=== PATIENT | male | born 1935 | race Caucasian/White ===

== ENCOUNTER 2016-12-23 12:01 | Inpatient (IN) | payer MEDICARE ==
[2016-12-23] MEDS ORDERED: ASPIRIN 300 MG SUPP.RECT RC ONE ×2 (12:09→12:13)
[2016-12-23] MEDS ORDERED: TENECTEPLASE 50 MG KIT IV ONE (12:13)
[2016-12-23] MEDS ORDERED: TENECTEPLASE IV ONE (12:13)
[2016-12-23] MEDS ORDERED: TENECTEPLASE 50 MG KIT IV STA (12:13)
[2016-12-23 12:14] LABS: Hematocrit 41.6 % (42.0-52.0); Hemoglobin 13.2 gm/dL (13.5-18.0); Mean Corpuscular Hemoglobin 30.8 pg (27-31); Mean Corpuscular Hgb Conc 31.7 g/dl (32-36); Mean Platelet Volume 11.7 fl (6.0-9.5); Neutrophil # 5.7 K/mm3 (1.3-6.0); Neutrophil % 38.8 % (42-75.0); Platelet Count 247 K/mm3 (150-450); Red Blood Count 4.29 M/mm3 (4.7-6.0); Red Cell Distribution Width 14.5 % (11.5-14.0); White Blood Count 14.6 K/mm3 (4.0-10.5)
[2016-12-23 12:15] LABS: Total Cells Counted 100
[2016-12-23] MEDS ORDERED: HEPARIN SODIUM,PORCINE 5,000 UNITS/ML VIAL IV ONE (12:15)
[2016-12-23] MEDS ORDERED: HEPARIN SODIUM,PORCINE 10,000 UNITS/ML VIAL ONE (12:21)
[2016-12-23 12:30] LABS: Atypical (Reactive) Lymph 11 % (0-2); Eosinophil 2 % (0-3); Immature Granulocyte 1 (0-1); Lymphocyte 34 % (20-51); Monocyte 7 % (0-9); Neutrophil 45 % (42-75); Neutrophil # 6.6 K/mm3 (1.3-6.0)
[2016-12-23 12:31] LABS: Anisocytosis 2+; Platelet Estimate Normal (NORMAL); Prothrombin Time (Patient) 11.2 Seconds (9.4-11.4)
[2016-12-23 12:32] LABS: INR 1.08 INR (0.90-1.10); Partial Thrombolplastin Time 20.1 Seconds (24-32)
[2016-12-23 12:33] LABS: Albumin * 2.9 gm/dl (3.4-5.0); BUN/Creatinine Ratio 18.1 (9.0-21.6); Bilirubin, Total 0.3 mg/dL (0.0-1.1); Ca. Corrected For Albumin 9.6 mg/dL (8.4-10.2); Carbon Dioxide 24.8 mmol/L (24-32.6); Potassium 2.8 mmol/L (3.4-4.6); Total Protein 7.2 gm/dL (6.2-8.2)
[2016-12-23 12:36] LABS: Troponin I 0.113 ng/ml (0.00-0.10)
--- NOTE | 2016-12-23 12:42 | OR ---
Anesthesia Procedure Note - Anesthesia Procedure Note Date of Service: 12/23/16 Narrative: Vital Signs - Last Taken Temp 36.6 C 12/23/16 12:06 Pulse 54 L 12/23/16 12:25 Resp 32 H 12/23/16 12:06 BP 90/54 12/23/16 12:25 Pulse Ox O2 Oxygen Delivery Method Ambu-Bag 12/23/16 12:37 Endotracheal intubation: I was called to the ER room 24 patient currently being ventilated with a supraglottic ventilation device. The patient is status post code who is now in an organized cardiac rhythm and has some spontaneous respiration but is non-responsive. The patient was preoxygenated with 100% O2 his dentures removed and secured with ER personnel, he was orally suctioned error was removed from the breathing device and removed the laryngoscopy performed. The anatomy was easy to identify but for some reason the light was particularly dull between light condition and his reflex cough/girdle against the laryngeal scope being visualization was made quite difficult. The patient was then ventilated with 100% oxygen by mask after additional oral suctioning was performed, rocuronium 3 mg followed by succinylcholine 5 mg and an additional 75 mg succinylcholine was given for rapid sequence type intubation. This time he remains on S was easily visualized with good light using a #3 glide scope. CO2 returned with a chemical monitor bilateral breath sounds were coarse but equal and no sounds in the epigastric area. Oxygen saturation remained good throughout the procedure, the #8 endotracheal tube was then secured at 22 cm with a commercial to pulling device.
[2016-12-23 12:43] LABS: Urine Bilirubin Negative (NEGATIVE); Urine Blood Negative /ul (NEGATIVE); Urine Ketone Negative (NEGATIVE); Urine Nitrite Negative (NEGATIVE); Urine Protein 15 mg/dL (NEGATIVE); Urine Urobilinogen Normal (NORMAL)
[2016-12-23 12:51] LABS: Urine Appearance Clear; Urine Bacteria 1+; Urine Color Yellow; Urine RBC None Seen /hpf (0-5); Urine WBC None Seen /hpf (0-5)
[2016-12-23 12:52] LABS: Urine Hyaline Cast 0-5 /LPF
[2016-12-23] MEDS ORDERED: POTASSIUM CHLORIDE 20 MEQ in NORMAL SALINE 1,000 ML IV PRN ×7 (12:53→13:02)
--- NOTE | 2016-12-23 12:55 | ERNOTE ---
CARDIAC HPI - Narrative Date of Service: 12/23/16 - General Stated Complaint:: Cardiac arrest Time Seen by Provider: 12/23/16 12:06 Source: EMS Exam Limitations: clinical condition - History of Present Illness Initial Comments: Was seated at home. His observed him to make a sound, then become unconscious. She called 911. First responders with there within 1-2 minutes. He had no pulse and wasn't breathing. They provided CPR, and he received overall 3 shocks. Rhythm reported was V fib. EMS arrived, started an interosseous and peripheral IV. He received a fourth shock and one dose of epinephrine, 1 mg IV. He then obtained a pulse and a blood pressure of about 90 systolic. He did not regain consciousness in the EMS vehicle. EMS also inserted a Herb airway. Upon arrival in the ER, EKG showed signs of inferior infarct, acute. He has a history of previous CABG. Ander Delcid, anesthesia, replaced the Herb airway with an endotracheal tube which was in good position. Family was not certain about which direction they wanted to carry the treatment forward. His was present shortly after arrival by EMS in the ER. They wished to discuss all of this with each other and with their station worker. The patient's pupils were mid position and nonresponsive upon arrival in the ER. He was given an ASA rectal suppository on arrival, and TNKase followed by a heparin bolus, but no heparin drip. He began to wake up, requiring institution of a propofol drip. Finally, after additional discussion, family wished to pursue comfort care. We stopped the propofol, and he began to wake up again. We have just removed the endotracheal tube, and will provide comfort care hereafter. Initial CXR showed fluffy infiltrates in the right lung, and endotracheal and NG tubes in good position. He had bloody material coming both up from the endotracheal tube and around it, but that abated. He was given one dose of IV antibiotics, presuming possible aspiration pneumonia. I spoke by telephone with Dr. Styles, who agreed to accept the patient as a comfort care admission. Timing/Duration: other Severity: severe Aspirin Treatment Today: provided by ED - Immun/Allergies/Home Medicatons Allergies/Adverse Reactions: Allergies Allergy/AdvReac Type Severity Reaction Status Date / Time adhesive Allergy Verified 12/23/16 12:30 amitriptyline Allergy Verified 12/23/16 12:30 gabapentin Allergy Verified 12/23/16 12:30 hydrocodone Allergy Verified 12/23/16 12:30 zolpidem tartrate Allergy Verified 12/23/16 12:30 [From Ambien] Home Medications: Ambulatory Orders Medication Instructions Recorded Allopurinol [Zyloprim] 200 mg PO DAILY 02/06/13 Aspirin [Aspirin Enteric Coated] 325 mg PO DAILY 02/06/13 Ferrous Sulfate 325 mg PO TID 02/06/13 Insulin Aspart [Novolog] 40 unit SQ TID 02/06/13 Insulin Glargine,Hum.rec.anlog 65 unit SQ BID 02/06/13 [Lantus Solostar] Isosorbide Dinitrate 30 mg PO TID 02/06/13 Multivitamin [Multivitamins] 1 each PO DAILY 02/06/13 Nitroglycerin 0.4 mg SL DAILY PRN 02/06/13 [place]-3 Fatty Acids/Fish Oil [Fish 2 each PO TID 02/06/13 Oil 1,000 mg Capsule] Rosuvastatin Calcium [Crestor] 20 mg PO DAILY 02/06/13 amLODIPine BESYLATE [Norvasc] 10 mg PO DAILY 02/06/13 Metoprolol Succinate [Toprol Xl] 25 mg PO DAILY 04/09/13 traMADol HCL [Ultram] 50 mg PO Q6H PRN 04/09/13 Clopidogrel Bisulfate [Plavix] 75 mg PO DAILY #0 tablet 04/12/13 Furosemide 60 mg PO DAILY 06/28/14 Venlafaxine HCl 450 mg PO DAILY 06/28/14 Albuterol Sulfate [Ventolin Hfa] 18 gm IH Q4H 07/02/14 Fenofibrate [Fenoglide] 48 mg PO DAILY 07/02/14 Pantoprazole Sodium [Protonix] 40 mg PO DAILY 07/02/14 Acetaminophen [Tylenol] 650 mg PO Q4H PRN 12/23/16 Review of Systems - Review of Systems Constitutional: Present: no symptoms reported - unable, due to clinical condition - Patient's Past Medical History Patient History - Medical: Anemia, Arthritis, Diabetes Type 2 Patient History - Cardiac/Respiratory: Coronary Heart Disease Patient History - Cancer: Colon Patient History - Surgical Procedures: Coronary Bypass Surgery, Cardiac stent - Social History Living Situations: home CP Exam - Physical Exam General Appearance: Present: other - obtunded. Eyes, Ears, Nose, Throat Exam: Present: normal ENT inspection Neck: Present: normal inspection Respiratory: Present: rhonchi Cardiovascular/Chest: Present: regular rate, rhythm Gastrointestinal/Abdominal: Present: normal bowel sounds, no organomegaly, no pulsatile mass Extremity: Present: no pedal edema Neurologic: Present: other Skin Exam: Present: cool/dry ED Progress - PROGRESS/REASSESSMENT Chief Complaint: Code Blue Condition: Improved Progress Note-Subjective: 12/23/16 15:05 I have been discussing the situation all along with family. We had to institute a propofol drip, for which I gave the bolus, because the patient began to thrash around, thereby dropping his O2 sats. He has had bloody discharge from his endotracheal tube and from his mouth. For this reason, although we bolused heparin, we have not started a heparin drip. I talked again just now with his spouse and answered all her questions. We have decided with her guidance to stop the propofol drip and see how things go. Overall, she is opting for comfort care. - VITAL SIGNS Patient's Vital Signs:: I have reviewed the patient's vital signs. Vital Signs - Last Taken Temp 36.6 C 12/23/16 12:06 Pulse 63 12/23/16 12:39 Resp 12 12/23/16 12:39 BP 109/59 12/23/16 12:39 Pulse Ox 98 12/23/16 12:39 - RESULTS AND ORDERS Patient's Lab Results:: I have reviewed the patient's lab results. Results and Orders: Abnormal/Pending Laboratory Last 24 HRS 12/23/16 12/23/16 12/23/16 12:09 12:09 12:09 WBC 14.6 H RBC 4.29 L Hgb 13.2 L Hct 41.6 L MCHC 31.7 L RDW 14.5 H MPV 11.7 H Immature Gran % (Auto) 4.50 H Immature Gran # (Auto) 0.66 H Neutrophils % 38.8 L Neutrophils # (Manual) 6.6 H Lymphocytes # 7.1 H Lymphocytes # (Manual) 5.0 H Atypic/Reactive Lymphs 11 H PTT ([place]) 20.1 L Sodium 143 H Plasma Sodium 145 H Potassium 2.8 L D Anion Gap 19.0 H BUN 36 H Creatinine 1.99 H D Est GFR (Non-Af Amer) 34 L D Random Glucose 221 H D AST 127 H ALT 112 H Troponin I 0.113 H* Albumin 2.9 L - EKG EKG #1 EKG: ST elevation - inferior leads, atrial fibrillation EKG Read: Interp. by me EKG #2 EKG: NSR EKG Read: Interp. by me - inferior wall st elevation improved. - X-Ray X-Ray #1 XRAY: chest X-Ray Interpretation: Interp. by me - patchy infiltrates right chest Departure - Departure Clinical Impression: Acute inferior myocardial infarction, Ventricular fibrillation Aspiration pneumonia Qualifiers: Aspiration pneumonia type: due to gastric secretions Laterality: right Lung location: unspecified part of lung Qualified Code(s): J69.0 - Pneumonitis due to inhalation of food and vomit Disposition: [facility] Condition: Critical
[2016-12-23] MEDS ORDERED: PROPOFOL 1,000 MG/100 ML PIGGYBACK IV ONE (13:45)
[2016-12-23] MEDS ORDERED: MORPHINE SULFATE 10 MG/ML SYRG ONE ×2 (15:42→17:02)
[2016-12-23] MEDS ORDERED: LORazepam 2 MG/ML DISP.SYRIN ONE (15:42)
[2016-12-23] MEDS ORDERED: LORazepam 2 MG/ML DISP.SYRIN IV ONE (15:47)
[2016-12-23] MEDS: MORPHINE SULFATE 10 MG/ML SYRG IV ONE ×2 (15:48→17:06)
[2016-12-23] MEDS ORDERED: POLYVINYL ALCOHOL 150 DROP BTL EACHEYE PRN (16:41)
[2016-12-23] MEDS ORDERED: ONDANSETRON HCL/PF 2 MG/ML VIAL IV PRN (16:41)
[2016-12-23] MEDS ORDERED: LORazepam 2 MG/ML DISP.SYRIN IV PRN ×2 (16:41→19:40)
[2016-12-23] MEDS ORDERED: MORPHINE SULFATE 4 MG/ML SYRG IV PRN ×2 (16:41→19:40)
[2016-12-23] MEDS ORDERED: NORMAL SALINE 1,000 ML IV PRN ×2 (16:55)
[2016-12-23 18:40] VITALS: BP 114/57
--- NOTE | 2016-12-23 19:20 | HP ---
Chief Complaint - Chief Complaint Date of Service: 12/23/16 Time of Service: 21:03 Chief Complaint: cardiac arrest History of Present Illness: Pt is an 81 year old male pt of Dr. Doll who presented to the ER today following a cardiac arrest. Information is obtained from EMR as the time of my report, pt has . Per record, "pt was seated at home. His observed him to make a sound, then become unconscious. She called 911. First responders with there within 1-2 minutes. He had no pulse and wasn't breathing. They provided CPR, and he received overall 3 shocks. Rhythm reported was V fib. EMS arrived, started an interosseous and peripheral IV. He received a fourth shock and one dose of epinephrine, 1 mg IV. He then obtained a pulse and a blood pressure of about 90 systolic. He did not regain consciousness in the EMS vehicle. EMS also inserted a Herb airway. Upon arrival in the ER, EKG showed signs of inferior infarct, acute. He has a history of previous CABG. Ander Delcid, anesthesia, replaced the Herb airway with an endotracheal tube which was in good position. Family was not certain about which direction they wanted to carry the treatment forward. His was present shortly after arrival by EMS in the ER. They wished to discuss all of this with each other and with their home health lpn. The patient 's pupils were mid position and nonresponsive upon arrival in the ER. He was given an ASA rectal suppository on arrival, and TNKase followed by a heparin bolus, but no heparin drip. He began to wake up, requiring institution of a propofol drip. Finally, after additional discussion, family wished to pursue comfort care. We stopped the propofol, and he began to wake up again. We have just removed the endotracheal tube, and will provide comfort care hereafter. Initial CXR showed fluffy infiltrates in the right lung, and endotracheal and NG tubes in good position. He had bloody material coming both up from the endotracheal tube and around it, but that abated. He was given one dose of IV antibiotics, presuming possible aspiration pneumonia. I spoke by telephone with Dr. Styles, who agreed to accept the patient as a comfort care admission." Scrap Kettle Tender came and saw pt per families request. Pt in peace with family at bedside at approximately 2044. - Patient's Past Medical History Patient History - Medical: Anemia, Arthritis, Diabetes Type 2 Patient History - Cardiac/Respiratory: Coronary Heart Disease Patient History - Cancer: Colon Patient History - Surgical Procedures: Coronary Bypass Surgery, Cardiac stent Patient History - Other: None - Family History Mother Family History - Medical: , Diabetes Type 2 Father Family History - Medical: Family History - Cardiac/Respiratory: Cardiac Arrest - Social History Living Situations: spouse Smoking Status: Never smoker Have you smoked in the past 12 months: No Do you dip or chew tobacco: No Patient requests Smoking Cessation Consult: No Initiate information on Smoking Cessation: No Alcohol Use: none Drug Use: none - Immunizations Immunizations Up to Date: Yes Hx Pneumococcal Vaccination: Yes History of Influenza Vaccine: Yes Review Of Systems (GEN) - Review of Systems Additional Comments: Pt has . GARY Allergies/Adverse Reactions: Allergies Allergy/AdvReac Type Severity Reaction Status Date / Time adhesive Allergy Verified 12/23/16 18:50 amitriptyline Allergy Verified 12/23/16 18:50 gabapentin Allergy Verified 12/23/16 18:50 hydrocodone Allergy Verified 12/23/16 18:50 zolpidem tartrate Allergy Verified 12/23/16 18:50 [From Ambien] Home Medications: HOME MEDICATIONS Allopurinol [Zyloprim] 200 mg PO DAILY 02/06/13 [Last Taken Unknown] Aspirin [Aspirin Enteric Coated] 325 mg PO DAILY 02/06/13 [Last Taken Unknown] Ferrous Sulfate 325 mg PO DAILY 02/06/13 [Last Taken Unknown] Insulin Aspart [Novolog] 40 unit SQ DAILY 02/06/13 [Last Taken Unknown] Insulin Glargine,Hum.rec.anlog [Lantus Solostar] 88 unit SQ BID 02/06/13 [Last Taken Unknown] Isosorbide Dinitrate 30 mg PO TID 02/06/13 [Last Taken Unknown] Multivitamin [Multivitamins] 1 each PO DAILY 02/06/13 [Last Taken Unknown] Nitroglycerin 0.4 mg SL DAILY PRN 02/06/13 [Last Taken Unknown] [place]-3 Fatty Acids/Fish Oil [Fish Oil 1,000 mg Capsule] 2 each PO TID 02/06/13 [Last Taken Unknown] Rosuvastatin Calcium [Crestor] 20 mg PO DAILY 02/06/13 [Last Taken Unknown] amLODIPine BESYLATE [Norvasc] 10 mg PO DAILY 02/06/13 [Last Taken Unknown] Metoprolol Succinate [Toprol Xl] 25 mg PO BID 04/09/13 [Last Taken Unknown] traMADol HCL [Ultram] 50 mg PO Q6H PRN 04/09/13 [Last Taken Unknown] Clopidogrel Bisulfate [Plavix] 75 mg PO DAILY #0 tablet 04/12/13 [Last Taken Unknown] Furosemide 60 mg PO DAILY 06/28/14 [Last Taken Unknown] Venlafaxine HCl 150 mg PO DAILY 06/28/14 [Last Taken Unknown] Albuterol Sulfate [Ventolin Hfa] 18 gm IH Q4H PRN 07/02/14 [Last Taken Unknown] Fenofibrate [Fenoglide] 48 mg PO DAILY 07/02/14 [Last Taken Unknown] Pantoprazole Sodium [Protonix] 40 mg PO DAILY 07/02/14 [Last Taken Unknown] Acetaminophen [Tylenol] 650 mg PO Q4H PRN 12/23/16 [Last Taken Unknown] Docusate Sodium [Colace] 100 mg PO TID 12/23/16 [Last Taken Unknown] Insulin Aspart [Novolog] 35 units SC DAILY 12/23/16 [Last Taken Unknown] Polyethylene Glycol 3350 [Miralax] 17 gm PO DAILY 12/23/16 [Last Taken Unknown] Polyvinyl Alcohol [Artificial Tears] 1 drop OP TID 12/23/16 [Last Taken Unknown] Spironolactone [Aldactone] 25 mg PO DAILY 12/23/16 [Last Taken Unknown] Exam - Exam Vital Signs: Vital Signs - Last Taken pt has Constitutional: Present: Elderly Diagnostic Studies: Laboratory Results Laboratory Tests 12/23/16 12/23/16 12/23/16 12:09 12:09 12:09 WBC 14.6 H Hgb 13.2 L Hct 41.6 L Plt Count 247 Neutrophils # (Manual) 6.6 H Lymphocytes # 7.1 H Lymphocytes # (Manual) 5.0 H Atypic/Reactive Lymphs 11 H PT 11.2 INR (Anticoag Therapy) 1.08 PTT ([place]) 20.1 L pCO2 pO2 HCO3 Total CO2 Base Excess ABG pH ABG O2 Sat (Measured) Sodium 143 H Potassium 2.8 L D BUN 36 H Creatinine 1.99 H D AST 127 H ALT 112 H Troponin I 0.113 H* B-Natriuretic Peptide 575 12/23/16 12/23/16 13:00 13:00 WBC Hgb Hct Plt Count Neutrophils # (Manual) Lymphocytes # Lymphocytes # (Manual) Atypic/Reactive Lymphs PT INR (Anticoag Therapy) PTT (Zari) pCO2 52.2 H pO2 71.2 L HCO3 19.9 L Total CO2 21.5 Base Excess -8.3 L ABG pH 7.20 L ABG O2 Sat (Measured) 90.4 L Sodium Potassium BUN Creatinine AST ALT Troponin I 0.302 H* B-Natriuretic Peptide Assessment/Plan - Assessment/Plan (1) Comfort measures only status Assessment: After previous speaking with family in the ER they would like to pursue only comfort, no heroic measures at this time. They feel that Mr. Lewis has had a good life and any further treatments from stand point are futile. Pt passed in peace with family at bedside. Problem: Acute (2) Acute inferior myocardial infarction Problem: Acute
[2016-12-23] MEDS ORDERED: ATROPINE SULFATE 150 DROP BTL SL PRN (19:40)
[2016-12-23] MEDS ORDERED: HYDROPHILIC OINTMENT 454 APPL JAR TP SCH (21:00)
--- NOTE | 2016-12-23 21:25 | DS ---
Discharge Summary - Provider Primary Care Provider: [place] Doll Attending Physician on Admission: Cecile Styles Pronouncing Clinician: Larisa Monreal - Date and Time Date of : 12/23/16 Time of : 20:45 - Diagnosis/Cause of (1) Comfort measures only status Problems: Acute (2) Acute inferior myocardial infarction Problems: Acute - Summary Procedures Performed: none - Additional Data Confirmation of as documented by pronouncing clinician: no pulse, no respirations Family: at bedside Attending/PCP notified: No Was code activated: No Autopsy requested: No Electroencephalograph Technician notified: Yes Organ Bank notified: Yes Hospice patient: No
== END 2016-12-23 20:48 | disposition expired ==
LOC: ER 12:01 → MS 16:22
PROVIDERS: ADMIT Internal Medicine; ATTEND Internal Medicine
PROC: 5A1935Z Respiratory Ventilation, Less than 24 Consecutive Hours (ICD-10-PCS; principal; 2016-12-23)
PROC: 0BH17EZ Insertion of Endotracheal Airway into Trachea, Via Natural or Artificial Opening (ICD-10-PCS; 2016-12-23)
PROC: 4A033R1 Measurement of Arterial Saturation, Peripheral, Percutaneous Approach (ICD-10-PCS; 2016-12-23)
DX: I21.09 ST elevation (STEMI) myocardial infarction involving other coronary artery of anterior wall (principal); J69.0 Pneumonitis due to inhalation of food and vomit; E11.9 Type 2 diabetes mellitus without complications; I25.10 Atherosclerotic heart disease of native coronary artery without angina pectoris; Z95.1 Presence of aortocoronary bypass graft; Z95.5 Presence of coronary angioplasty implant and graft; Z85.038 Personal history of other malignant neoplasm of large intestine; Z79.82 Long term (current) use of aspirin
CPT/HCPCS: 31500; 36415; 36600; 51702; 71010; 80053; 81001; 82803; 83880; 84484; 85025; 85610; 85730; 87040; 93005; 96365; 96367; 96375; 99284; J3100; J3101